=== PATIENT | male | born 1975 | race Caucasian/White ===

== ENCOUNTER 2021-01-28 18:37 | Emergency (ER) | payer OTHER, MEDICAID, SELFPAY ==
[2021-01-28 18:49] VITALS: BP 123/84; PULSE 120; RESP 18; TEMP 37.3; O2SAT 99
--- NOTE | 2021-01-28 18:58 | ED.GENADULT ---
HPI - General Adult General Chief complaint: Unspecified Stated complaint: Needs Eloquis Time Seen by Provider: 01/28/21 18:59 History of Present Illness HPI narrative: Patient presents with chest pain and shortness of breath. Patient states he ran out of his Eliquis 3 days ago and just wants a refill on his Eliquis. Patient states he is has a history of pulmonary embolism and DVTs and that is why he takes Eliquis. Onset (ago): day(s) Related Data Allergies Allergy/AdvReac Type Severity Reaction Status Date / Time codeine Allergy Unknown Hives / Verified 01/28/21 19:08 Red Face Review of Systems Review of Systems: Narrative: CONSTITUTIONAL: Denies fever, chills, or sweats. EYES: Denies visual changes, redness, or discharge. ENT: Denies rhinorrhea, congestion, sore throat, or otalgia. CARDIOVASCULAR: Reports chest pain, palpitations, and shortness of breath no edema. RESPIRATORY: Denies cough GASTROINTESTINAL: Denies abdominal pain, nausea, vomiting, or diarrhea. GENITOURINARY: Denies dysuria or hematuria. SKIN: Denies rash or itching. MUSCULOSKELETAL: Denies back pain, joint pain, or myalgia. NEUROLOGIC: Denies headache, numbness, or weakness. PSYCHIATRIC: Denies anxiety or depression. PMFSH Comments At time of signature, agree with nursing past medical, surgical, social and family history. There is no relevant family history pertinent to the presenting complaint Exam Narrative: Exam Narrative: GENERAL: Well-appearing, well-nourished, and in no acute distress. HEAD: Normocephalic, atraumatic. EYES: PERRLA and EOMI. ENT: Nares clear, no rhinorrhea or epistaxis. Mucous membranes moist. NECK: Supple. CHEST: No respiratory distress. Lungs diminished bilateral patient short of breath at rest HEART: Regular rate and rhythm. No murmur heard. Normal peripheral pulses. ABDOMEN: Soft, nontender, nondistended, normal active bowel sounds. EXTREMITIES: Normal range of motion. No edema. SKIN: Warm, dry, no rash. NEURO: No focal deficits. Alert and oriented x3. [place] Coma Scale Eye Opening: Spontaneous 4 [place] Coma Scale Motor: Obeys Commands 6 [place] Coma Scale Verbal: Oriented 5 [place] Coma Scale Total 15 Course Vital Signs Vital signs: Vital Signs Temperature 37.3 C 01/28/21 18:49 Pulse Rate 120 H 01/28/21 18:49 Respiratory Rate 18 01/28/21 18:49 Blood Pressure 123/84 01/28/21 18:49 Pulse Oximetry 99 01/28/21 18:49 Temperature 37.3 C 01/28/21 18:49 Pulse Rate 120 H 01/28/21 18:49 Respiratory Rate 18 01/28/21 18:49 Blood Pressure 123/84 01/28/21 18:49 Pulse Oximetry 99 01/28/21 18:49 Patient declined transfer to emergency room. Patient states he will go to the emergency room is on will not give provider a name of an emergency room to arrange transfer. Patient states he will sign out AGAINST MEDICAL ADVICE and is aware of that he may without his Eliquis. AMA papers signed. Patient understands that he could end up in if needed declines transfer to emergency room for further evaluation of chest pains and shortness of breath. Patient declined EKG or chest x-ray at this [facility] visit. Patient states he will get himself to the closest emergency room. Patient signed AMA paperwork and verbalizes understanding of leaving AGAINST MEDICAL ADVICE. Medical Decision Making Vital Signs Vital Signs: Vital Signs Temperature 37.3 C 01/28/21 18:49 Pulse Rate 120 H 01/28/21 18:49 Respiratory Rate 18 01/28/21 18:49 Blood Pressure 123/84 01/28/21 18:49 Pulse Oximetry 99 01/28/21 18:49 Temperature 37.3 C 01/28/21 18:49 Pulse Rate 120 H 01/28/21 18:49 Respiratory Rate 18 01/28/21 18:49 Blood Pressure 123/84 01/28/21 18:49 Pulse Oximetry 99 01/28/21 18:49 Critical Care Time Critical Care Time Critical Care Time: No Discharge Plan Discharge Clinical Impression: Medication refill, Chest pain, Breath shortness Patient Dispositio
== END 2021-01-28 19:05 | disposition left against medical advice (07) ==
PROVIDERS: Emergency Provider Nurse Practitioner Family
DX: R07.9 Chest pain, unspecified (principal); R06.02 Shortness of breath; Z86.711 Personal history of pulmonary embolism; Z86.718 Personal history of other venous thrombosis and embolism
CPT/HCPCS: 99211; G0463